=== PATIENT | male | born 1955 | race Caucasian/White ===

== ENCOUNTER 2018-06-02 03:50 | Inpatient (IN) | payer OTHER ==
[2018-06-02] VITALS (7 sets, daily range): BP systolic 104–155; BP diastolic 73–104
[~2018-06-02] VITALS: Ht 172.7 cm; Wt 114.3 kg
--- NOTE | ~2018-06-02 | CATHLAB ---
[facility] [address] [place] [address] INVASIVE PROCEDURE REPORT Name: GARRICK BURR JR Room #: 208-P [facility]#: [id number] Admission: 06/02/18 Attend Phys: Patrick Enamorado, Discharge: 06/04/18 Date of : 53 Date of Service: 06/06/18 1734 Report #: [id number] THIS REPORT FOR: //name// APPROVED REPORT Study performed: 06/02/2018 04:31:30 Patient Details Patient Status: ED Room #: The patient is a 62 year-old male Event Personnel Patrick Enamorado Multi Skilled Operator, Bartolo Ramírez RN RN, Nora Diaz RTR, Mitchell Boland Christine RTR Monitor Procedures Performed Art Access - R femoral artery* Ascending Aortography Hemostasis w/ Mynx Left Heart Cath Coronaries, Bypass Grafts [id number] LHCCORCABG 54813 Initial Mod Sed Same Phys/QHP Gr5y 163711 35377 Mod Sed Same Phys/QHP Ea 001210 JANEL Revasc AMI Total/Sub Single RCA C9606 AMIREVSING Indication Chest pain Procedure Narrative The Right Groin^ was infiltrated with 1% Lidocaine subcutaneous anesthesia. A PINNACLE 6FR Sheath #[id number] sheath was inserted into the RFA^. Coronary angiography was performed using coronary diagnostic catheters. The right coronary system was accessed and visualized with a JR4 catheter. The left coronary system was accessed and visualized with a JL4 catheter. The left ventricle was accessed and visualized with a Pigtail catheter. Left ventriculogram was performed in 30 degree projection. An aortogram of the ascending aorta was performed. Pre-demployment femoral angiogram was performed . Closure device was deployed with a 6 Fr MYNXGRIP 6/7F #[id number]. The patient tolerated the procedure well and there were no complications associated with the procedure. There was no hematoma. Intraoperative Conscious Sedation Sedation start time: 04:54 Case end Time: 05:57 Fentanyl 100 mcg Versed [address] [address] INVASIVE PROCEDURE REPORT Name: GARRICK BURR Room #: 208-P [facility]#: [id number] Admission: 06/02/18 Attend Phys: Patrick Enamorado, Discharge: 06/04/18 Date of : 53 Date of Service: 06/06/18 1734 Report #: [id number] Fluoro Time: 9.22 minutes Dose: DAP 51771.90 cGycm2 2454 mGy Contrast Type and Amount: Visipaque 235 ml Hemodynamics The aortic pressure is 122/84 mmHg with a mean of 102 mmHg. The left ventricular pressure is 137/13 mmHg with a mean of mmHg. The left ventricular end diastolic pressure is 31 mmHg. PCI Technique Lesion Percutaneous coronary intervention was performed on the distal right coronary artery. A LAUNCHER 6FR JR 4 90CM #[id number] Guide Catheter was used to engage the ostium. A Luge Wire .014 x 182CM #[id number] Interventional Guidewire was used to cross the lesion. BALLOON DILATION A Balloon catheter Sprinter OTW 2.5 x 12 #[id number] was inserted and inflated up to 12.00atm for 29seconds. Additional Inflation: 16.00atm for 28seconds. STENT DEPLOYMENT A drug-eluting stent RESOLUTE OTW 3.0 X 12 #[id number] was inserted and inflated up to 18.00atm for 37seconds. Conclusion #1 successful emergent PTCA stent of a distal dominant RCA occlusion placement of a 30 by 12 resolute drug-eluting stent to 3.3 mm at the distal RCA with brisk flow into the PDA and ALIN #2 left main is a distal lesion of 60-70% giving rise to an occluded LAD and moderate disease and a circumflex artery 60% range with a high rising marginal branch also 60% #3 the LAD is occluded #4 circumflex OM is filled via the 70% left main with a 70% ostial first OM and 70% proximal circumflex lesion #5 vein graft to a second OM branch retrograde fills the circumflex briskly some competitively filled through the elem system. This graft is widely patent #6 there is a GALVEZ which has been taken down and is filling the LAD. Moderate disease in the LAD is extensive the apex #7 normal left ventricular size with inferior wall hypokinesis EF 45% to 50% range #8 supravalvular aortogram revealing trivial aortic insufficiency there is faint filling of a aortic grafts Recommendations and plan: Continue aggressive risk factor medication. [facility] [address] [place] [address] INVASIVE PROCEDURE REPORT Name: GARRICK BURR JR Room #: 809-P DIS IN M.R.#: [id number] Admission: 06/02/18 Attend Phys: Patrick Enamorado, Discharge: 06/04/18 Date of : 53 Date of Service: 06/06/18 1734 Report #: [id number] Dual antiplatelet therapy. To CCU in stable condition. Pain-free with resolving EKG changes <ELECTRONICALLY SIGNED> By: Patrick Enamorado MD, FACC 06/06/18 1734 173 33 Patrick Enamorado MD, FACC /INF
--- NOTE | ~2018-06-02 | HC ---
[facility] [place] [address] CONSULTATION Name: AMINAHGARRICK Neel PEREZ Room #: 208-P [facility] IN M.R.#: [id number] Admission: 06/02/18 Attend Phys: Patrick Enamorado MD, Discharge: 06/04/18 Date of : 53 Report #: [id number] THIS REPORT FOR: //name// CC: FAM unknown Patrick Enamorado REASON FOR CONSULTATION: Medical management. REASON FOR PRESENTATION: Neck and chest pain. HISTORY OF PRESENT ILLNESS: A 62-year-old who began to have chest pain 20 minutes before his arrival to the Emergency Room. This was associated with radiation to the jaw area. He reported also sweating with it. He took baby aspirin and Tums with no relief of his symptoms. He tells me that he had a cardiac bypass back in 2011. This was quadruple bypass. He reported to dyspnea on exertion. No orthopnea or PND. His cardiac disease was discovered during a stress test for his knee surgery. He ended up having CABG x 4. He denies unstable angina. He presented to be further evaluated where he was found to have an acute ST elevation [place] and was taken to the laborer electroplating with a stent placed in his RCA. Medical team is being asked to manage his medical related issues. PAST MEDICAL HISTORY: 1. Hypertension. 2. Diabetes mellitus. 3. Hyperlipidemia. 4. Hypothyroidism. 5. Morbid obesity. 6. Vertigo. 7. Status post CABG x 4. 8. Back fusion. 9. Knee surgery. MEDICATIONS: 1. Aspirin. 2. Lisinopril 5 mg daily. 3. Simvastatin 40 mg daily. 4. Levothyroxine 150 mcg q. day. 5. Carvedilol 25 mg daily. 6. Atorvastatin. 7. Gabapentin. 8. Metformin. 9. Tizanidine. 10. Omeprazole. SOCIAL HISTORY: Denies drug or alcohol abuse. He is on disability. FAMILY HISTORY: Very strong family history of coronary artery disease including [facility] [address] [place] [address] CONSULTATION Name: AMINAHGARRICK E Room #: [address] [place] [address].#: [id number] Admission: 06/02/18 Attend Phys: Patrick Enamorado MD, Discharge: 06/04/18 Date of : 53 Report #: [id number] . REVIEW OF SYSTEMS: GENERAL: No fever or chills. CARDIOVASCULAR: As per the history of present illness. PULMONARY: As per the history of present illness. GASTROINTESTINAL: No nausea or vomiting. GENITOURINARY: No frequency, no urgency. NEUROLOGICAL: No headache, no dizziness, no syncope. SKIN: No rash or ulcerations. PHYSICAL EXAMINATION: GENERAL: He is alert, oriented. VITAL SIGNS: Blood pressure is 119/82, temperature 37.2, pulse rate is 84. HEAD AND NECK: No jugular venous distention, no bruit, no thyromegaly. CHEST: Clear to auscultation bilaterally. CARDIOVASCULAR: Regular with no rub detected. ABDOMEN: Soft, nontender with no hepatosplenomegaly. LOWER EXTREMITIES: No edema with intact peripheral pulses. LABORATORY DATA: Reviewed. Initial troponins were negative. Platelet is 137. Chemistry showed a low sodium at 133. Magnesium was low at 1.4. ASSESSMENT, IMPRESSION AND PLAN: 1. Acute ST elevation myocardial infarction. 2. Hypertension. 3. Diabetes mellitus. 4. Hyperlipidemia. 5. Hypothyroidism. 6. The patient was taken to the laborer electroplating and a right coronary artery lesion had been fixed with a stent. 7. Continue the current post-acute coronary intervention protocol including statin, TIN inhibitor, carvedilol, routine anticoagulation. 8. Holding his metformin for now. 9. Resume his thyroid medication. 10. Routine post-catheterization care. 11. Gastrointestinal prophylaxis. 12. Watch blood sugar. 13. Sliding scale insulin. We will continue to follow along. <ELECTRONICALLY SIGNED> By: Angela Barreto MD 06/11/18 0634 0931 1957 Angela Barreto MD /nt
--- NOTE | ~2018-06-02 | 2DMMODE ---
[facility] [address] 2 D/M-MODE ECHOCARDIOGRAM Name: GARRICK BURR Room #: 208-P [facility] IN ..#: [id number] Admission: 06/02/18 Attend Phys: Patrick Enamorado, Discharge: Date of : 53 Date of Service: 06/03/18 0918 Report #: [id number] THIS REPORT FOR: //name// APPROVED REPORT Study performed: 06/02/2018 09:26:25 EXAM: Comprehensive 2D, Doppler, and color-flow Echocardiogram Patient Location: Bedside Room #: 208 Status: on-call BSA: 2.23 HR: 86 bpm BP: 115/80 mmHg Other Information Study Quality: Fair Indications Diabetes Dyspnea CAD Hypertension/HDD STEMI Echo Enhancing Agent Indication: Endocardial border delineation Agent(s) / Amount(s) Used: Optison 3 cc 2D Dimensions LVEF(%): 62.62 (>50%) IVSd: 10.42 (7-11mm) LVOT Diam: 24.19 (18-24mm) LVDd: 55.15 mm PWd: 10.22 (7-11mm) Ascending Ao: 37.20 (22-36mm) LVDs: 36.28 (25-40mm) Aortic Root: 31.73 mm IVC: 18.00 mm Snyder's LVEF: 62.62 % Aortic Valve AoV Peak Tha.: 1.17 m/s AO Peak Gr.: 5.50 mmHg LVOT Max P.03 mmHg LVOT Max V: 0.87 m/s KULDIP Vmax: 3.41 cm2 Mitral Valve [facility] [address] [place] [place] [address] 2 D/M-MODE ECHOCARDIOGRAM Name: GARRICK BURR JR Room #: 208-P [facility] IN [facility].#: [id number] Admission: 06/02/18 Attend Phys: Patrick Enamorado, Discharge: Date of : 53 Date of Service: 06/03/18 0918 Report #: [id number] E/A Ratio: 1.1 MV Decel. Time: 198.55 ms MV E Max Tha.: 0.93 m/s MV A Tha.: 0.86 m/s MV PHT: 57.58 ms IVRT: 96.89 ms Pulmonary Valve PV Peak Tha.: 0.71 m/s PV Peak Gr.: 1.99 mmHg Left Ventricle The left ventricle is normal size. There is normal left ventricular wall thickness. The left ventricular systolic function is normal. The left ventricular ejection fraction is within the normal range. LVEF is 50 55% mild inf wall hypo The left ventricular diastolic function is normal. Right Ventricle The right ventricle is normal size. The right ventricular systolic function is normal. Atria Left atrium is at the upper limits of normal. The right atrium size is normal. Aortic Valve The aortic valve is normal in structure. No aortic regurgitation is present. There is no aortic valvular stenosis. Mitral Valve The mitral valve is normal in structure. Mild mitral regurgitation. No evidence of mitral valve stenosis. Tricuspid Valve The tricuspid valve is normal in structure. There is no tricuspid valve regurgitation noted. Pulmonic Valve The pulmonary valve is normal in structure. There is no pulmonic valvular regurgitation. Great Vessels The aortic root is normal in size. IVC is normal in size and collapses >50% with inspiration. Pericardium [facility] [address] 2 D/M-MODE ECHOCARDIOGRAM Name: GARRICK BURR JR Room #: 208-P ADM IN M.R.#: [id number] Admission: 06/02/18 Attend Phys: Patrick Enamorado, Discharge: Date of : 53 Date of Service: 06/03/18 0918 Report #: [id number] There is no pericardial effusion. <Conclusion> The left ventricle is normal size. LVEF is 55-60%. LVEF is 50 55% mild inf wall hypo Left atrium is at the upper limits of normal. The aortic valve is normal in structure. There is no aortic valvular stenosis. The aortic valve is normal in structure. Mild mitral regurgitation. There is no tricuspid valve regurgitation noted. The aortic root is normal in size. There is no pericardial effusion. <ELECTRONICALLY SIGNED> By: Patrick Enamorado MD, [facility] 06/03/18917 7 7 Patrick Enamorado MD, FAC /INF
--- NOTE | ~2018-06-02 | H ---
[facility] [place] [address] HISTORY AND PHYSICAL Name: GARRICK BURR Room #: 208-P [facility] IN M.R.#: [id number] Admission: 06/02/18 Attend Phys: Patrick Enamorado MD, Discharge: 06/04/18 Date of : 53 Report #: [id number] THIS REPORT FOR: //name// CC: FAM unknown Patrick Enamorado DATE OF SERVICE: 06/02/2018 HISTORY OF PRESENT ILLNESS: The patient is a 62-year-old male who awokened with chest pain this morning. This is consistent with his angina, got up to let the dog out approximately 3:00 a.m. and had an onset of sudden chest pain, shortness of breath and some diaphoresis. Subsequently, he called his sister and brought to [facility]. He had subtle inferior wall ST segment elevation. He felt like pain initially had been some gaseous issue, but he has been having more of that lately, but has not had any of this intense discomfort as he experienced this morning. He has been compliant with his medications. He is applying for disability. He has not seen Cardiology in a year or two. He had bypass surgery dating back to 2011, which he believes was a 4-vessel. I do not have any of the records. CURRENT MEDICATIONS: Aspirin, atorvastatin 40, carvedilol 25 b.i.d., Lasix 40, gabapentin 300, glyburide 5, insulin, Synthroid branded 150 mcg, lorazepam 0.5 at night, metformin 500 b.i.d., Singulair, Aldactone 25, Flomax 0.4, Zanaflex and tramadol 50 three times a day with meals, omeprazole 40. PAST MEDICAL HISTORY: Positive for hypertension, hypercholesterolemia, diabetes, 2 back surgeries, a right knee replacement, coronary artery bypass surgery, no infarct that he was aware of, reflux, DJD. SOCIAL HISTORY: He lives alone. He has never been , no children. Not a smoker. Social drinker. REVIEW OF SYSTEMS: Negative except for stated above with some nocturia and hesitancy. ALLERGIES: VICODIN. FAMILY HISTORY: Mother and sister have had premature coronary artery disease. PHYSICAL EXAMINATION: VITAL SIGNS: Blood pressure 122/84, pulse is 60s and regular. HEENT: Eyes reveal xanthelasmas. Pharynx is clear. NECK: Shows preserved upstrokes without JVD or bruits. LUNGS: Clear, slight expiratory phase. CARDIOVASCULAR: Regular rate and rhythm, S1, S2. ABDOMEN: Obese, nontender. [address] [address] HISTORY AND PHYSICAL Name: GARRICK BURR Room #: [facility] IN M.R.#: [id number] Admission: 06/02/18 Attend Phys: Patrick Enamorado MD, Discharge: 06/04/18 Date of : 53 Report #: [id number] EXTREMITIES: Reveal trace nonpitting edema. Distal pulses are diminished, but intact. NEUROLOGIC: Nonfocal. SKIN: Warm and dry without xanthoma or ulcer. MUSCULOSKELETAL: Generalized arthritic changes, right knee replaced. ASSESSMENT: 1. Acute inferior wall myocardial infarction. 2. Coronary artery disease with prior coronary artery bypass graft 2011. 3. Hypertension. 4. Hypercholesterolemia. 5. Obesity. 6. Degenerative joint disease. 7. Benign prostatic hypertrophy. RECOMMENDATIONS AND PLAN: We will proceed emergently to the catheterization lab. We will utilize aspirin, Lipitor 80 and heparin bolus. Risks, benefits, alternatives discussed with the patient. He does elect to proceed. Thank you for the opportunity to assist in the care of this patient. <ELECTRONICALLY SIGNED> By: Patrick Enamorado MD, FACC 06/11/18 0942 0602 1603 Patrick Enamorado MD, FACC /nt
--- NOTE | ~2018-06-02 | EKG ---
[place] [address] [facility] [place] [address] ELECTROCARDIOGRAM REPORT Name: AMINAHGARRICK Room #: 208-P [facility] M.R.#: [id number] Admission: 06/02/18 Attend Phys: Patrick Enamorado MD, Discharge: Date of : 53 Report #: [id number] THIS REPORT FOR: //name// [facility] Test Date: 2018-06-03 Test Time: 07:40:50 Pat Name: GARRICK BURR Department: Room: 208 P Gender: M Drug And Alcohol Counsellor: ALTON : 1955 Requested By: Patrick Enamorado Order Number: [id number] MD: William Peres Measurements Intervals [place] Rate: 75 P: 55 IN: 194 QRS: 199 QRSD: 108 T: 133 QT: 417 QTc: 466 Interpretive Statements Sinus rhythm Nonspecific T wave abnormality Inferior infarct, old No previous ECG available for comparison Electronically Signed On 06-03-2018 14:10:30 CDT by William Peres [email or web address] <ELECTRONICALLY SIGNED> By: William Peres MD, [facility] 06/03/18 1410 0740 9 William Peres MD, FACC /EPI
--- NOTE | ~2018-06-02 | EKG ---
[place] [address] [facility] [place] [address] ELECTROCARDIOGRAM REPORT Name: GARRICK BURR Room #: 208-P [facility] M.R.#: [id number] Admission: 06/02/18 Attend Phys: Patrick Enamorado MD, Discharge: Date of : 53 Report #: [id number] THIS REPORT FOR: //name// [facility] Test Date: 2018-06-02 Test Time: 07:47:24 Pat Name: GARRICK BURR Department: Room: 208 P Gender: M Clinical Appeals Reviewer: benjamín : 1955 Requested By: Patrick Enamorado Order Number: [id number] MD: William Peres Measurements Intervals [place] Rate: 86 P: 43 IL: 200 QRS: 235 QRSD: 109 T: 77 QT: 394 QTc: 472 Interpretive Statements Sinus rhythm Probable right ventricular hypertrophy Inferior infarct, old Baseline wander in lead(s) V3 No previous ECG available for comparison Electronically Signed On 06-03-2018 14:05:39 CDT by William Peres [email or web address] <ELECTRONICALLY SIGNED> By: William Peres MD, [facility] 06/03/18 1405 0747 William Peres MD, [facility] /EPI
--- NOTE | ~2018-06-02 | EKG ---
[place] [address] [place] [address] ELECTROCARDIOGRAM REPORT Name: GARRICK BURR Room #: 208-P [facility].R.#: [id number] Admission: 06/02/18 Attend Phys: Patrick Enamorado MD, Discharge: Date of : 53 Report #: [id number] THIS REPORT FOR: //name// [facility] ED Test Date: 2018-06-02 Test Time: 03:50:38 Pat Name: GARRICK BURR Department: Room: Gender: M Chief Pilot: YAMILE : 1955 Requested By: Elgin Rios Order Number: [id number] MD: William Peres Measurements Intervals [place] Rate: 89 P: 55 CT: 207 QRS: 122 QRSD: 109 T: 99 QT: 371 QTc: 452 Interpretive Statements Sinus rhythm Inferoposterior infarct, acute (RCA) Poor R wave progression No previous ECG available for comparison Electronically Signed On 06-03-2018 14:03:11 CDT by William Peres [email or web address] <ELECTRONICALLY SIGNED> By: William Peres MD, [facility] 06/03/18 1403 9 William Peres MD, FACC /EPI
[~2018-06-02 03:50] MED LIST: ACETAMINOPHEN650 M5 OR; ASPIRIN325 OR; DIABETA 5MG TABL5 MG PO; LEVAQUIN 500 M500 M2 PO; LISINOPRIL5 MG OR; MECLIZINE HCL25 M1 PO; SIMVASTATIN40 MG PO; SYNTHROID150 MCG PO; TUSSIONEX PENN473 ML PO
[2018-06-02] MEDS ORDERED: ATORVASTATIN CA40 MG PO (04:19)
[2018-06-02] MEDS ORDERED: NEURONTIN 300300 M1 PO (04:20)
[2018-06-02] MEDS ORDERED: COREG25 MG PO (04:20)
[2018-06-02] MEDS ORDERED: GLYBURIDE 2.52.5 MG PO (04:21)
[2018-06-02] MEDS ORDERED: ATIVAN0.5 MG PO (04:23)
[2018-06-02] MEDS ORDERED: ZANAFLEX4 MG PO (04:24)
[2018-06-02] MEDS ORDERED: FLOMAX0.4 MG PO (04:24)
[2018-06-02] MEDS ORDERED: METFORMIN HCL500 MG PO (04:24)
[2018-06-02] MEDS ORDERED: ULTRAM 50MG TAB50 MG PO (04:25)
[2018-06-02] MEDS ORDERED: OMEPRAZOLE40 MG PO (04:26)
[2018-06-02 04:29] LABS: ABSOLUTE NEUTROPHILS 4.3 thou/uL (1.4-8.2); BASOPHILS 0.7 % (0.0-2.0); EOSINOPHILS 1.5 % (0.0-3.0); HEMATOCRIT 50.5 % (42.0-52.0); HEMOGLOBIN 16.8 gm/dL (14.0-18.0); LYMPHOCYTES 22.3 % (24.0-44.0); MCH 29.2 pg (26.0-34.0); MCHC 33.2 g/dL (28.0-37.0); MCV 87.8 fL (80.0-100.0); MONOCYTES 9.5 % (1.0-8.0); PLATELET COUNT 137 thou/uL (150-400); RBC 5.75 mil/uL (4.50-6.00); RDW 15.2 % (10.5-14.5); WBC 6.4 thou/uL (4.0-11.0)
[2018-06-02 04:40] LABS: ANION GAP 4 mmol/L (7-16); BUN 14 mg/dL (7-18); CALCIUM 8.9 mg/dL (8.5-10.1); CHLORIDE 100 mmol/L (98-107); CO2 29 mmol/L (21-32); CREATININE 0.8 mg/dL (0.7-1.3); GLUCOSE 369 mg/dL (74-106); POTASSIUM 4.3 mmol/L (3.5-5.1); SODIUM 133 mmol/L (136-145)
[2018-06-02 04:45] LABS: APTT 19.9 Seconds (24.5-32.8); PROTIME 10.6 Seconds (9.3-11.4)
[2018-06-02 04:49] LABS: ALBUMIN 3.1 g/dL (3.4-5.0); MAGNESIUM 1.4 mg/dL (1.8-2.4); SGOT 22 U/L (15-37); SGPT 34 U/L (30-65); TOTAL BILIRUBIN 0.5 mg/dL (<0.1-1.0); TOTAL PROTEIN 6.4 g/dL (6.4-8.2); TROPONIN-I <0.06 ng/mL (<0.06)
[2018-06-02 13:38] LABS: AMP/METHAMP Negative (Negative); BARBITURATES Negative (Negative); BENZODIAZEPINES POSITIVE (Negative); COCAINE Negative (Negative); METHADONE Negative (Negative); OPIATES POSITIVE (Negative); PCP Negative (Negative)
[2018-06-03 03:20] VITALS: BP 101/68
[2018-06-03 03:32] LABS: ABSOLUTE NEUTROPHILS 6.2 thou/uL (1.4-8.2); BASOPHILS 0.5 % (0.0-2.0); EOSINOPHILS 1.7 % (0.0-3.0); HEMATOCRIT 48.4 % (42.0-52.0); HEMOGLOBIN 16.1 gm/dL (14.0-18.0); LYMPHOCYTES 15.9 % (24.0-44.0); MCH 28.8 pg (26.0-34.0); MCHC 33.3 g/dL (28.0-37.0); MCV 86.6 fL (80.0-100.0); MONOCYTES 8.9 % (1.0-8.0); PLATELET COUNT 133 thou/uL (150-400); RBC 5.59 mil/uL (4.50-6.00); RDW 14.8 % (10.5-14.5); WBC 8.5 thou/uL (4.0-11.0)
[2018-06-03 03:42] LABS: CHOLESTEROL 138 mg/dL (<200); HDL CHOLESTEROL 31 mg/dL (>40); LDL CHOLESTEROL 77 mg/dL (<100); TC:HDL 4.5 Ratio (Not establshd); TRIGLYCERIDE 154 mg/dL (<150); VLDL 31 mg/dL (<40)
[2018-06-03 03:46] LABS: SERUM ASSESSMENT Clear
[2018-06-03 03:53] LABS: ALBUMIN 2.9 g/dL (3.4-5.0); CALCIUM 8.8 mg/dL (8.5-10.1); CREATININE 0.9 mg/dL (0.7-1.3); POTASSIUM 4.2 mmol/L (3.5-5.1); TOTAL BILIRUBIN 0.9 mg/dL (<0.1-1.0); TOTAL PROTEIN 6.2 g/dL (6.4-8.2)
[2018-06-03 03:58] LABS: TROPONIN-I 25.7 ng/mL (<0.06)
[2018-06-03 08:26] VITALS: BP 106/65
[2018-06-03 11:32] VITALS: BP 112/68
[2018-06-03 16:40] VITALS: BP 99/58
[2018-06-03 19:57] VITALS: BP 136/86
[2018-06-04 04:27] VITALS: BP 124/72
[2018-06-04] MEDS ORDERED: EFFIENT10 MG PO (07:55)
[2018-06-04] MEDS ORDERED: ASPIRIN325 PO (07:55)
[2018-06-04 07:56] VITALS: BP 119/81
[2018-06-04] MEDS ORDERED: JARDIANCE10 MG PO (08:19)
[2018-06-04 10:43] VITALS: BP 119/81
== END 2018-06-04 11:30 | disposition home or self-care (01) | DRG 246 ==
LOC: ER 03:50 → 2N 06:15 → ENTRNSPT 06-04 11:12 → EDTRNSPTSTS 06-04 11:24 → 2N 06-04 11:30
PROVIDERS: Emergency Medicine; Internal Medicine Cardiovascular Disease; Nurse Practitioner Adult Health
PROC: 4A023N7 Measurement of Cardiac Sampling and Pressure, Left Heart, Percutaneous Approach (ICD-10-PCS; principal; 2018-06-02)
PROC: 027034Z Dilation of Coronary Artery, One Artery with Drug-eluting Intraluminal Device, Percutaneous Approach (ICD-10-PCS; principal; 2018-06-02)
PROC: B211YZZ Fluoroscopy of Multiple Coronary Arteries using Other Contrast (ICD-10-PCS; principal; 2018-06-02)
PROC: B310YZZ Fluoroscopy of Thoracic Aorta using Other Contrast (ICD-10-PCS; principal; 2018-06-02)
PROC: B21FYZZ Fluoroscopy of Other Bypass Graft using Other Contrast (ICD-10-PCS; principal; 2018-06-02)
DX: I21.19 ST elevation (STEMI) myocardial infarction involving other coronary artery of inferior wall (principal); J96.00 Acute respiratory failure, unspecified whether with hypoxia or hypercapnia; I10 Essential (primary) hypertension; E11.9 Type 2 diabetes mellitus without complications; E78.5 Hyperlipidemia, unspecified; E03.9 Hypothyroidism, unspecified; E66.01 Morbid (severe) obesity due to excess calories; E78.00 Pure hypercholesterolemia, unspecified; Z96.651 Presence of right artificial knee joint; Z60.2 Problems related to living alone; N40.0 Benign prostatic hyperplasia without lower urinary tract symptoms; M19.90 Unspecified osteoarthritis, unspecified site; I25.10 Atherosclerotic heart disease of native coronary artery without angina pectoris; E11.40 Type 2 diabetes mellitus with diabetic neuropathy, unspecified; K21.9 Gastro-esophageal reflux disease without esophagitis; G89.4 Chronic pain syndrome; Z79.82 Long term (current) use of aspirin; Z79.899 Other long term (current) drug therapy; Z68.38 Body mass index [BMI] 38.0-38.9, adult; Z95.1 Presence of aortocoronary bypass graft; Z82.49 Family history of ischemic heart disease and other diseases of the circulatory system; Z88.8 Allergy status to other drugs, medicaments and biological substances; Z89.021 Acquired absence of right finger(s)
CPT/HCPCS: 10081

== ENCOUNTER → 2019-11-07 | Outpatient (CLI) | payer OTHER ==
[~2019-11-07] VITALS: Ht 170.2 cm; Wt 108.9 kg
[~2019-11-07] MED LIST changes: +ASPIR 8181 M1 PO; +ASPIRIN325 PO; +ATIVAN0.5 MG PO; +ATORVASTATIN CA40 MG PO; +COREG25 MG PO; +EFFIENT10 MG PO; +FLOMAX0.4 MG PO; +GLIPIZIDE 10 MG10 MG PO; +GLYBURIDE 2.52.5 MG PO; +JARDIANCE10 MG PO; +METFORMIN HCL500 MG PO; +NEURONTIN 300300 M1 PO; +NITROSTAT0.4 M1 SUBLING; +OMEPRAZOLE40 MG PO; +ROSUVASTATIN CA20 MG PO; +SPIRONOLACTONE25 M1 PO; +ULTRAM 50MG TAB50 MG PO; +ZANAFLEX4 MG PO; +ZETIA10 MG PO
--- NOTE | ~2019-11-07 | HPC ---
[facility] [place] [address] PAIN MANAGEMENT CONSULTATION Name: GARRICK BURR Room #: REG [facility].#: [id number] Admission: 11/07/19 Attend Phys: Jose Alfredo Alcaraz MD Discharge: Date of : 53 Report #: [id number] THIS REPORT FOR: //name// CC: Jose Alfredo Goldstein MD DATE OF SERVICE: 11/07/2019 CHIEF COMPLAINT: Lumbar pain without radiation. The patient is a pleasant 63-year-old here today for evaluation of back pain. He has some mid back pain that is severe with standing and walking. It is improved with sitting or lying on his right side. He describes his pain as aching, continuous and steady, and pain intensity is anywhere from 6 to 8. It never goes away. He has a history of prior lumbar surgery with fusion. Dr. Pandey performed the surgery. He had repeat surgery and Dr. Pandey left in place L3 pedicle screws that were ____ up to the current system extending from L4 through S1. They appear not to be causing issue. His pain, however, is located in the midline just above his fusion and would be consistent with facet arthropathy related to hypermobility, common, following fusion surgery of an extensive nature. He does not appear to have any neuropathic symptoms at this time. MEDICATIONS: Atorvastatin, carvedilol, ____, aspirin, nitroglycerin, Zetia, Glucotrol, Aldactone, tramadol prescribed by Dr. Goldstein no more than 3 per day, tizanidine p.r.n. muscle spasm, tamsulosin, lorazepam, gabapentin, acetaminophen and levothyroxine. ALLERGIES: None. PAST MEDICAL HISTORY: Hyperlipidemia, hypertension, chronic back pain, type 2 diabetes, hypothyroidism, coronary artery disease, status post CABG times 3 in 2011, right knee replacement in 2011. His lumbar surgeries were in 2013 and 2016. SOCIAL HISTORY: He is on disability. He denies use of tobacco, drinks alcohol 2-4 times weekly in a social setting. He is single. REVIEW OF SYSTEMS: Positive for hearing loss, constipation, frequent urination, nocturia, and a history of depression. PHYSICAL EXAMINATION: GENERAL: Pleasant gentleman, alert and oriented. Moves independently from sitting to standing position, ambulates with antalgic features. [address] [address] PAIN MANAGEMENT CONSULTATION Name: AMINAHGARRICK Neel Room #: [facility]#: [id number] Admission: 11/07/19 Attend Phys: Jose Alfredo Alcaraz MD Discharge: Date of : 53 Report #: [id number] CHEST: Clear. CARDIAC: Rhythm is regular. There is a murmur noted. ABDOMEN: Soft. MUSCULOSKELETAL: Examination of the spine reveals extensive scarring from previous lumbar surgery. Tenderness across the lumbosacral segment, both along the scar and also above the scar. There was increased pain with back extension. Straight leg raising is negative for radicular pain. IMPRESSION: Lumbar spondylosis. RECOMMENDATIONS: 1. I have ordered thoracic and lumbar plain film x-rays to evaluate the facet joints and also to assess alignment. 2. Consider ongoing exercise as an important modality. 3. Injections would be diagnostic and therapeutic. I have recommended bilateral T12-L1, L1-L2, L3-L4 facet injections under fluoroscopic guidance. Preauthorization will be sought. If he gets good response from these injections, we will consider medial branch nerve blocks. He might be a candidate down the line for facet ablation. Alternative treatment might be a single epidural injection to determine if he can get relief from such a single injection modality. We will determine more after we see him back in the clinic, but for now, I have scheduled him for facet injections hoping for benefits outlined above. By: 1730 0052 Jose Alfredo Alcaraz MD /nt
[2019-11-07 09:40] VITALS: BP 118/75
--- NOTE | 2019-11-07 10:09 | NUR ---
Pain Clinic Assessment: 1. History of Osteoarthritis: Left Lower Extremity Left Upper Extremity Right Lower Extremity Right Upper Extremity * BACK History of Rheumatoid Arthritis: Not Applicable 2. Height: 5 ft. 7 in. 170.2 cm. Weight: 240.0 lb. oz. 108.864 kg. Patient's BMI: 37.6 3. Vital Signs: BP: 118/75 Pulse: 76 Resp: 16 Temp: 02 Sat: 95 ECG Mon: 4. Pain Intensity: 7 5. Fall Risk: Dizziness: N Needs help standing or walking: N Fallen in the last 3 months: N Fall risk comments: 6. Patient on Blood Thinner: None 7. History of Hypertension: Y 8. Opioid Therapy greater than 6 weeks: N Opiate Contract Signed: 9. Risk Assessment Tool Provided: 10. Functional Assessment Tool: 11. Recreational Drug Use: Never Drug Type: Tobacco Use: Never Smoker Tobacco Type: Amount or Packs/day: How Many Years: Alcohol Use: Yes Frequency: Weekly Quant: 3-4
== END ==
LOC: RAD 06:47 → PAIN 06:47
DX: M47.816 Spondylosis without myelopathy or radiculopathy, lumbar region (principal); M48.061 Spinal stenosis, lumbar region without neurogenic claudication; M25.78 Osteophyte, vertebrae; M47.814 Spondylosis without myelopathy or radiculopathy, thoracic region; Z79.899 Other long term (current) drug therapy; Z98.890 Other specified postprocedural states; Z88.8 Allergy status to other drugs, medicaments and biological substances

== ENCOUNTER → 2019-11-25 | Outpatient (CLI) | payer OTHER ==
[~2019-11-25] VITALS: Ht 170.2 cm; Wt 108.4 kg
[~2019-11-25] MED LIST changes: +MELOXICAM7.5 MG PO
--- NOTE | ~2019-11-25 | HPC ---
[address] [place] [address] PAIN MANAGEMENT CONSULTATION Name: GARRICK BURR [facility] [id number] Admission: 11/25/19 Attend Phys: Jose Alfredo Alcaraz MD Discharge: Date of : 53 Report #: [id number] THIS REPORT FOR: //name// CC: Jose Alfredo Goldstein MD DATE OF SERVICE: 11/25/2019 PROCEDURE NOTE: Bilateral T12-L1, L1-L2, L2-L3 facet injections under fluoroscopic guidance. INDICATION FOR PROCEDURE: The patient was seen on 11/07/2019. He was felt to have facet mediated spondylitic pain above his fusion. We have elected to proceed with facet injections in the three joints above bilaterally with hopes of providing both pain relief and perhaps diagnostic information. PROCEDURE: After informed consent, he was placed in the prone position. Skin was prepped with ChloraPrep. Skin was anesthetized first on the left. Using biplanar fluoroscopic views, I carefully advanced 22-gauge needles into the posterior inferior capsule and inferior recess of the joints of T12-L1, L1-L2 and L2-L3. After negative aspiration at each level, I injected 1 mL of 0.5% bupivacaine mixed with 10 mg of triamcinolone. [place] were removed. C-arm was moved to the right. Skin anesthetized once again overlying the facet joints described T12-L1, L1-L2 and L2-L3. Needle was advanced into each joint and after negative aspiration, I injected 0.5 mL of 0.5% lidocaine mixed with 10 mg of triamcinolone at each of those levels. He tolerated the injection well. Pain was slightly reduced at discharge and plan is for him to return on an as needed basis. Hopefully, we will see some extended relief from these injections. By: 1652 0024 Jose Alfredo Alcaraz MD /nt
[2019-11-25 14:02] VITALS: BP 129/93
--- NOTE | 2019-11-25 14:23 | NUR ---
Pain Clinic Assessment: 1. History of Osteoarthritis: Left Lower Extremity Left Upper Extremity Right Lower Extremity Right Upper Extremity * BACK History of Rheumatoid Arthritis: Not Applicable 2. Height: 5 ft. 7 in. 170.2 cm. Weight: 239.0 lb. oz. 108.410 kg. Patient's BMI: 37.4 3. Vital Signs: BP: 129/93 Pulse: 75 Resp: 16 Temp: 02 Sat: 95 ECG Mon: 4. Pain Intensity: 7 5. Fall Risk: Dizziness: N Needs help standing or walking: N Fallen in the last 3 months: N Fall risk comments: 6. Patient on Blood Thinner: None 7. History of Hypertension: Y 8. Opioid Therapy greater than 6 weeks: N Opiate Contract Signed: 9. Risk Assessment Tool Provided: 1-LOW RISK 10. Functional Assessment Tool: 11. Recreational Drug Use: Never Drug Type: Tobacco Use: Never Smoker Tobacco Type: Amount or Packs/day: How Many Years: Alcohol Use: Yes Frequency: Special Occasions Quant:
== END | disposition home or self-care (01) ==
LOC: PAIN 06:32
DX: M47.816 Spondylosis without myelopathy or radiculopathy, lumbar region (principal); I21.3 ST elevation (STEMI) myocardial infarction of unspecified site; Z79.82 Long term (current) use of aspirin; Z79.899 Other long term (current) drug therapy

== ENCOUNTER → 2020-01-06 | Outpatient (CLI) | payer OTHER | LOC: SJCVC 14:21 | DX: I45.10 Unspecified right bundle-branch block (principal); I11.9 Hypertensive heart disease without heart failure; R94.31 Abnormal electrocardiogram [ECG] [EKG]; I25.10 Atherosclerotic heart disease of native coronary artery without angina pectoris; I25.5 Ischemic cardiomyopathy; E11.9 Type 2 diabetes mellitus without complications; G47.30 Sleep apnea, unspecified; E78.00 Pure hypercholesterolemia, unspecified; E66.9 Obesity, unspecified; I25.2 Old myocardial infarction; Z95.1 Presence of aortocoronary bypass graft; Z79.4 Long term (current) use of insulin; Z96.651 Presence of right artificial knee joint; Z79.899 Other long term (current) drug therapy; Z87.891 Personal history of nicotine dependence ==

== ENCOUNTER 2020-05-10 16:29 | Inpatient (IN) | payer OTHER ==
[~2020-05-10] VITALS: Ht 170.2 cm; Wt 108.4 kg
[2020-05-10 16:33] VITALS: BP 147/96
[2020-05-10 16:51] LABS: ABSOLUTE NEUTROPHILS 3.6 thou/uL (1.4-8.2); EOSINOPHILS 3.5 % (0.0-3.0); HEMATOCRIT 53.6 % (42.0-52.0); LYMPHOCYTES 25.3 % (24.0-44.0); MCH 29.5 pg (26.0-34.0); MCHC 33.6 g/dL (28.0-37.0); MCV 87.9 fL (80.0-100.0); MONOCYTES 10.8 % (1.0-8.0); PLATELET COUNT 144 thou/uL (150-400); POLYS 59.4 % (36.0-66.0); RDW 14.8 % (10.5-14.5); WBC 6.1 thou/uL (4.0-11.0)
[2020-05-10 17:01] LABS: ANION GAP 3 mmol/L (7-16); BUN 18 mg/dL (7-18); CALCIUM 9.7 mg/dL (8.5-10.1); CHLORIDE 99 mmol/L (98-107); CO2 30 mmol/L (21-32); GLUCOSE 147 mg/dL (74-106); POTASSIUM 5.5 mmol/L (3.5-5.1); SODIUM 132 mmol/L (136-145)
[2020-05-10] MEDS ORDERED: BUPROPION XL300 MG PO (17:05)
[2020-05-10 17:10] LABS: TROPONIN-I <0.06 ng/mL (<0.06)
[2020-05-10 17:51] LABS: ALBUMIN 3.3 g/dL (3.4-5.0)
[2020-05-10 18:00] LABS: TSH 0.208 uIU/mL (0.358-3.740)
[2020-05-10 18:03] VITALS: BP 123/84
[2020-05-10 18:41] VITALS: BP 114/86
--- NOTE | 2020-05-10 19:20 | NUR ---
PT IS AN ADMIT FROM EMERGENCY ROOM. REPORT TAKEN ASSUME CARE. PT REPORTS HE HAD CHEST PAIN TODAY AND LEFT SHOULDER PAIN. STABING. DENIES ANY CHEST PAIN UPON ARIVAL TO UNIT. NEGATIVE TROPONIN. ABDOMEN IS ROUND BOWEL SOUNDS ACTIVE X4. SOFT. NO EDEMA NOTED BILATERAL. MEDS GIVEN AFTER ADMISSION HISTORY AND ASSESSMENT COMPLETED. WILL CONTUNUE TO ASSESS AND MONITOR PER SYLVIA. PLAN OF CARE DISSCUSED WITH PT IN REGARDS TO ADMISSION AND HOSPITAL STAY. CALL LIGHT WITHIN REACH IF NEEDS ASSISTANCE
[2020-05-10 23:18] VITALS: BP 132/79
[2020-05-11] VITALS (17 sets, daily range): BP systolic 114–133; BP diastolic 65–97
[2020-05-11 04:49] LABS: HEMATOCRIT 52.7 % (42.0-52.0); HEMOGLOBIN 17.3 gm/dL (14.0-18.0); MCHC 32.8 g/dL (28.0-37.0); MCV 88.2 fL (80.0-100.0); RBC 5.98 mil/uL (4.50-6.00); RDW 14.9 % (10.5-14.5); WBC 5.8 thou/uL (4.0-11.0)
[2020-05-11 05:04] LABS: CALCIUM 8.5 mg/dL (8.5-10.1); CREATININE 0.8 mg/dL (0.7-1.3); MAGNESIUM 1.7 mg/dL (1.8-2.4)
[2020-05-11 05:05] LABS: POTASSIUM 4.1 mmol/L (3.5-5.1)
--- NOTE | 2020-05-11 05:08 | NUR ---
PT IS ALERT AND ORIENTED X4. LUNGS ARE CLEAR ON ROOM AIR. ABDOMEN IS ROUND AND BOWEL SOUNDS ACTIVE X4. DENIES ANY CHEST PAIN THIS AM. TROPONIN NEGATIVE. UP WITH MINIMAL ASSIST. PT RESTING REPORTS HARD TO SLEEP IN HOSPITAL. CALL LIGHT WITHIN REACH IF NEEDS ASSISTANCE FROM STAFF. MEDS GIVEN ORDERED ON JAN. WILL CONTINUE TO MONITORING AND VITALS AND CHEST PAIN PER NURSING.
[2020-05-11 05:09] LABS: CHOLESTEROL 116 mg/dL (<200); HDL CHOLESTEROL 26 mg/dL (>40); LDL CHOLESTEROL 39 mg/dL (<100); TC:HDL 4.5 Ratio (Not establshd); TRIGLYCERIDE 256 mg/dL (<150); VLDL 51 mg/dL (<40)
[2020-05-11 05:11] LABS: SERUM ASSESSMENT Clear
--- NOTE | 2020-05-11 07:44 | EKG ---
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 : 1955 Requested By: Deandre Ruggiero Order Number: [id number] MD: William Peres Measurements Intervals [place] Rate: 83 P: 45 ID: 203 QRS: -87 QRSD: 129 T: 96 QT: 418 QTc: 492 Interpretive Statements Sinus rhythm Right ventricular conduction delay Inferior infarct, old Compared to ECG 06/03/2018 07:40:50 No significant change was found Electronically Signed On 05-11-2020 7:43:43 CDT by William Peres [email or web address] <ELECTRONICALLY SIGNED> By: William Peres MD, [facility] 05/11/20 0743 1635 1635 William Peres MD, [facility] /EPI
--- NOTE | 2020-05-11 18:14 | NUR ---
ASSESSMENT CHARTED. PT ALERT AND ORIENTED. VSS. DENIED HAVING CHEST PAIN. SR ON TELE. HAD CARDIAC CATH THIS AM. HAD HEMATOMA ON THE RIGHT GROIN. MANUAL PRESSURE APPLIED. DR. TUTTLE NOTIFIED. WILL CONTINUE TO MONITOR.
[2020-05-12] VITALS: BP 128/65
[2020-05-12 04:00] VITALS: BP 128/81
[2020-05-12 05:00] VITALS: BP 126/81
[2020-05-12 05:43] LABS: HEMATOCRIT 51.9 % (42.0-52.0); HEMOGLOBIN 17.1 gm/dL (14.0-18.0); MCH 29.2 pg (26.0-34.0); MCV 88.5 fL (80.0-100.0); RBC 5.87 mil/uL (4.50-6.00); RDW 14.8 % (10.5-14.5); WBC 7.1 thou/uL (4.0-11.0)
--- NOTE | 2020-05-12 05:47 | NUR ---
ASSUMED PT CARE AT 1900, PT IS AWAKE, ALERT AND ORIENTEDX4, ASSESSMENTS CHARTED, DENIES CHEST PAIN OR SOB, RIGHT GROIN SITE CDI, NO HEMATOMA, BRUISING NOTED ON THE SITE, PAIN MEDICATION GIVEN PRN WITH PARTIAL RELIEF, VSS, LAYING IN BED, NO DISTRESS NOTED, WILL CONTINUE TO MONITOR
[2020-05-12 05:58] LABS: ALBUMIN 3.1 g/dL (3.4-5.0); CALCIUM 8.5 mg/dL (8.5-10.1); POTASSIUM 4.2 mmol/L (3.5-5.1); TOTAL PROTEIN 5.9 g/dL (6.4-8.2)
[2020-05-12 08:00] VITALS: BP 131/75
[2020-05-12] MEDS ORDERED: EFFIENT10 MG PO (08:38)
--- NOTE | 2020-05-12 08:44 | EKG ---
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 : 1955 Requested By: Hector Richardson Order Number: [id number] MD: William Peres Measurements Intervals [place] Rate: 97 P: 16 DC: 210 QRS: -88 QRSD: 123 T: 101 QT: 368 QTc: 468 Interpretive Statements Sinus rhythm Borderline prolonged DC interval Right ventricular conduction delay Inferior infarct, age indeterminate Compared to ECG 05/10/2020 16:35:13 No significant change was found Electronically Signed On 05-12-2020 8:43:01 CDT by William Peres [email or web address] <ELECTRONICALLY SIGNED> By: William Peres MD, [facility] 05/12/20 0843 1609 1609 William Peres MD, [facility] /EPI
--- NOTE | 2020-05-12 08:48 | EKG ---
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 : 1955 Requested By: Hector Richardson Order Number: [id number] MD: William Peres Measurements Intervals [place] Rate: 99 P: 47 TN: 204 QRS: -91 QRSD: 118 T: 91 QT: 346 QTc: 444 Interpretive Statements Sinus rhythm IRBBB and LPFB Inferior infarct, old Nonspecific ST segment abnormality Compared to ECG 05/10/2020 16:35:13 No significant change was found Electronically Signed On 05-12-2020 8:48:01 CDT by William Peres [email or web address] <ELECTRONICALLY SIGNED> By: William Peres MD, [facility] 05/12/20 0848 1 1 William Peres MD, [facility] /EPI
--- NOTE | 2020-05-12 09:06 | CATHLAB ---
[facility] [place] [address] INVASIVE PROCEDURE REPORT Name: GARRICK BURR Room #: 213-P ADM IN M.R.#: [id number] Admission: 05/10/20 Attend Phys: Juan Wilson MD Discharge: Date of : 53 Report #: [id number] THIS REPORT FOR: cc: Marbin Goldstein Steven F. DO Park, Jin S. MD ~ APPROVED REPORT Study performed: 05/11/2020 12:52:58 Patient Details Patient Status: In-Patient Room #: The patient is a 64 year-old male Event Personnel Hector Richardson Varnish Maker, Nora Diaz RTR, [employer] Monitor, Michelle Gonzalez RN, Jonatan Pierre RN RN, Larisa Singh RTR [place] Mi Roberta Monitor Procedures Performed Art Access - R femoral artery* Left Heart Cath w/or w/o Coronaries [id number] [facility] JANEL Place w/wo Plasty Single DIAG [id number] JANEL Place w/wo Plasty Single RAMUS Inter [id number] 82147 Initial Mod Sed Same Phys/QHP Gr5y 851864 71627 Mod Sed Same Phys/QHP Ea 510492 Hemostasis w/ Mynx Indication Dyspnea, Unstable angina , Chest pain Risk Factors Hypercholesterolemia, Coronary Artery DiseaseHypertension, Diabetes Previous Procedures/Diagnoses Previous CABGPrevious PCI, Previous AR Procedure Narrative The Right Groin^ was infiltrated with 1% Lidocaine subcutaneous anesthesia. A PINNACLE 6FR Sheath #[id number] sheath was inserted into the RFA 4F^. Coronary angiography was performed using coronary diagnostic catheters. The right coronary system was accessed and visualized with a JR4 catheter. The left coronary system was accessed and visualized with a JL4 catheter. There was no hematoma. The following grafts were present and open: svg to OM, svg to Diag., and SVG to RV. [address] [address] INVASIVE PROCEDURE REPORT Name: GARRICK BURR Room #: 213-P [facility] IN [facility]#: [id number] Admission: 05/10/20 Attend Phys: Juan Wilson, Discharge: Date of : 53 Report #: [id number] Intraoperative Conscious Sedation Fentanyl mcg Versed mg Fluoro Time: 28.51 minutes Dose: DAP 60012.90 cGycm2 Contrast Type and Amount: Omnipaque 135 ml Coronary Angiography The patient's coronary anatomy is right dominant. Diagnostic Cath Left Main There is mild disease in the distal segment of the left main artery, 30%. LAD There is a total occlusion in the proximal segment. There is a patent free GALVEZ graft with an end-to-side anastomosis to the mid LAD. The LAD wraps around the apex. Diagonal 1 There is a small caliber vessel with a severe stenosis in the midsegment, medical therapy is recommended. Diagonal 2 There is a patent vessel with a severe stenosis at the ostium. OM1 There is a patent SVG with an end-to-side anastomosis to OM1. After the anastomosis, there is retrograde filling of the mid and distal left circumflex artery. Right Coronary The RCA is a dominant vessel. There is a patent stent at the distal segment just before the bifurcation. Just before the stent, there is a moderate stenosis of 40%. R PDA This is a patent vessel, with mild disease. RPLV This is a patent vessel, with mild disease. Left Ventriculography Left Ventriculography was not performed. An LVEDP was measured and there is no gradient across the outflow tract. IVUS A Guide Catheter was used to engage the VISTA 6FR JL5 #[id number] ostium. A [employer] Interventional Guidewire was used. A Luge Wire .014 x 182CM #[id number] was used. IVUS Findings Euphora RX 2.0 x 6 #[id number] Hemodynamics The aortic pressure is 138/76 mmHg with a mean of 107 mmHg. The left ventricular pressure is 138/8 mmHg with a mean of mmHg. The left ventricular end diastolic pressure is 22 mmHg. [facility] [address] [place] [address] INVASIVE PROCEDURE REPORT Name: GARRICK BURR Room #: 213-P [facility] IN M.R.#: [id number] Admission: 05/10/20 Attend Phys: Juan Wilson, Discharge: Date of : 53 Report #: [id number] PCI Technique Lesion Percutaneous coronary intervention was performed on the second diagnonal branch segment. The lesion stenosis prior to intervention was 90% with FARIDA 3 flow. A VISTA 6FR JL5 #624344 Guide Catheter was used to engage the LCA ostium. A Luge Wire .014 x 182CM #[id number] Interventional Guidewire was used to cross the lesion. BALLOON DILATION A Balloon catheter Euphora RX 2.0 x 10 #[id number] was inserted and inflated up to 14atm for 27seconds. Additional Inflation: 12atm for 12seconds. The lesion extended from the proximal LAD into the ostium of the second diagonal artery. STENT DEPLOYMENT A stent RESOLUTE BOBBY RX 2.25 X 8 #[id number] was inserted and inflated up to 16.00atm for 33seconds. Additional Inflation: 12.00atm for 19seconds. Additional Inflation: 12.00atm for 14seconds. POST STENT DEPLOYMENT BALLOON DILATION A Balloon catheter Euphora NC RX 2.25 x 12 #[id number] was inserted and inflated up to 14atm for 23seconds. NC Euphora 2.5oac2xy balloon. 12 marvin for 19 secs., 12 marvin for 14 secs. Final angiography reveals 0 % stenosis with FARIDA 3 flow. PCI Technique Lesion A VISTA 6FR JL5 #670851 Guide Catheter was used to engage the ramus ostium. A Luge Wire .014 x 182CM #[id number] Interventional Guidewire was used to cross the lesion. BALLOON DILATION A Balloon catheter Euphora RX 2.0 x 6 #[id number] was inserted and inflated up to 6atm for 10seconds. Additional Inflation: 10atm for 7seconds. Additional Inflation: 10atm for 9seconds. STENT DEPLOYMENT A stent XIENCE MEL RX 2.25 X 12 #[id number] was inserted and inflated up to 14atm for 17seconds. PCI Technique Lesion 2 Percutaneous Coronary Intervention was performed on the ramus intermedius segment. The lesion stenosis prior to intervention was 90% with FARIDA 3 flow. Balloon Dilation [facility] [address] [facility] [place] [address] INVASIVE PROCEDURE REPORT Name: GARRICK BURR Room #: 213-P [facility] IN .R.#: [id number] Admission: 05/10/20 Attend Phys: Juan Wilson, Discharge: Date of : 53 Report #: [id number] A Balloon catheter Euphora RX 2.0 x 10 #[id number] was inserted and inflated up to 8atm for 14seconds. Stent Deployment A drug-eluting stent XIENCE MEL RX 2.25 X 12 #[id number] was inserted and inflated up to 16atm for 15seconds. Final angiography reveals 0 % stenosis with FARIDA 3 flow. Conclusion 1. Successful insertion of a drug-eluting stent into the second diagonal artery. 2. Successful insertion of a drug-eluting stent into the ramus artery. 3. There is a patent free GALVEZ graft to the mid LAD. 4. There is a patent SVG to OM1. After the anastomosis, there is retrograde filling of the mid and distal left circumflex artery. 5. There is a patent stent in the [place] RCA. There is a modest stenosis just before the stent. 6. There is a patent SVG to RV marginal. 7. Recommend dual antiplatelet therapy and aggressive risk factor management. <ELECTRONICALLY SIGNED> By: Hector Richardson MD 05/12/20904 4 0905 Hector Richardson MD /KATINA
--- NOTE | 2020-05-12 11:53 | NUR ---
08:00 ASSUMED PT. CARE AT THIS TIME. PT. HAD ALOT OF QUESTIONS ABOUT ANY MEDICATION CHANGES AND WE REVIEWED HIS MEDICINE SHEET WELL AT BEDSIDE. PT. DENIES ANY SOB. SINUS RYTHYM WITH BBB AN OCCASIONAL AV BLOCK. STRIP PLACEDON CHART. GROIN SITE DRESSING REMAINS C,D,I . THE GROIN INSERTION SITE AREA DOES SHOW SOME BRUISNG DOWN TO HE BASE AREA OF HIS PENIS, BLACK AND BLUE ABOUT 5 INCHES IN LENGTH, HAS BEEN MARKED BY PRIOR SHIFT AND HAS NOT EXTENDED OVERIGHT. GROINT INSERTION SITE IS SOFT TO TOUCH, NO HEMATOMA AND DISTAL'S BILATERALLY ARE 2+. WILL MONITOR AND INQUIRE ABOUT DISCHARGE PLANNING TODAY.
--- NOTE | 2020-05-12 11:58 | NUR ---
PT. UP IN BED. SAID HE DID NOT WANT TO SHOWER TODAY AND WOULD PREFER TO DO SUCH AT E INSTEAD LATER ON. DENIES CHEST PAIN, DENIES ANY SOB. STATED HIS RIDE HOME IS CLOSE BY ABOUT 10 MINUTES AND AVAILABLE.
[2020-05-12 13:58] VITALS: BP 131/75
--- NOTE | 2020-05-12 15:13 | NUR ---
PT. DISCHARGED AT THIS TIME. IV REMOVED. DENIES ANY PAIN. GROIN SITE IS C,D,I.
== END 2020-05-12 15:26 | disposition home or self-care (01) | DRG 246 ==
LOC: ER 16:29 → EROBS 17:31 → 2N 17:31
PROVIDERS: Emergency Medicine; Internal Medicine Cardiovascular Disease; ADMIT Internal Medicine; ATTEND Internal Medicine
PROC: 4A023N7 Measurement of Cardiac Sampling and Pressure, Left Heart, Percutaneous Approach (ICD-10-PCS; principal; 2020-05-11)
PROC: B2111ZZ Fluoroscopy of Multiple Coronary Arteries using Low Osmolar Contrast (ICD-10-PCS; principal; 2020-05-11)
PROC: B2181ZZ Fluoroscopy of Left Internal Mammary Bypass Graft using Low Osmolar Contrast (ICD-10-PCS; principal; 2020-05-11)
PROC: B240ZZ3 Ultrasonography of Single Coronary Artery, Intravascular (ICD-10-PCS; principal; 2020-05-11)
PROC: 027135Z Dilation of Coronary Artery, Two Arteries with Two Drug-eluting Intraluminal Devices, Percutaneous Approach (ICD-10-PCS; principal; 2020-05-11)
PROC: B21F1ZZ Fluoroscopy of Other Bypass Graft using Low Osmolar Contrast (ICD-10-PCS; principal; 2020-05-11)
DX: I25.110 Atherosclerotic heart disease of native coronary artery with unstable angina pectoris (principal); I50.33 Acute on chronic diastolic (congestive) heart failure; Z96.651 Presence of right artificial knee joint; E87.5 Hyperkalemia; E78.5 Hyperlipidemia, unspecified; E11.40 Type 2 diabetes mellitus with diabetic neuropathy, unspecified; E03.9 Hypothyroidism, unspecified; I11.0 Hypertensive heart disease with heart failure; N40.0 Benign prostatic hyperplasia without lower urinary tract symptoms; F32.9 Major depressive disorder, single episode, unspecified; E78.00 Pure hypercholesterolemia, unspecified; I25.5 Ischemic cardiomyopathy; Z95.1 Presence of aortocoronary bypass graft; Z95.5 Presence of coronary angioplasty implant and graft; Z79.82 Long term (current) use of aspirin; Z79.899 Other long term (current) drug therapy; Z87.891 Personal history of nicotine dependence
CPT/HCPCS: 10081

== ENCOUNTER → 2020-06-11 | Outpatient (CLI) | payer OTHER ==
[~2020-06-11] MED LIST changes: +BUPROPION XL300 MG PO
== END ==
LOC: SJCVC 13:44
PROVIDERS: ATTEND Internal Medicine Cardiovascular Disease
DX: I44.0 Atrioventricular block, first degree (principal); I45.10 Unspecified right bundle-branch block; I11.9 Hypertensive heart disease without heart failure; R94.31 Abnormal electrocardiogram [ECG] [EKG]; I25.810 Atherosclerosis of coronary artery bypass graft(s) without angina pectoris; I25.5 Ischemic cardiomyopathy; E11.9 Type 2 diabetes mellitus without complications; E78.00 Pure hypercholesterolemia, unspecified; E78.5 Hyperlipidemia, unspecified; I25.2 Old myocardial infarction; E66.9 Obesity, unspecified; Z79.4 Long term (current) use of insulin; Z95.1 Presence of aortocoronary bypass graft; Z79.82 Long term (current) use of aspirin; Z79.899 Other long term (current) drug therapy; Z82.49 Family history of ischemic heart disease and other diseases of the circulatory system; Z87.891 Personal history of nicotine dependence

== ENCOUNTER → 2020-07-22 | Outpatient (CLI) | payer OTHER | LOC: SJCVC 15:33 | PROVIDERS: ATTEND Internal Medicine Cardiovascular Disease | DX: R94.31 Abnormal electrocardiogram [ECG] [EKG] (principal); I45.10 Unspecified right bundle-branch block; I11.9 Hypertensive heart disease without heart failure; I25.10 Atherosclerotic heart disease of native coronary artery without angina pectoris; I10 Essential (primary) hypertension; E78.00 Pure hypercholesterolemia, unspecified; E11.9 Type 2 diabetes mellitus without complications; I25.5 Ischemic cardiomyopathy; G47.30 Sleep apnea, unspecified; R07.9 Chest pain, unspecified; Z79.4 Long term (current) use of insulin; Z95.1 Presence of aortocoronary bypass graft ==

== ENCOUNTER → 2020-09-22 | Outpatient (CLI) | payer OTHER | LOC: SJCVCIMAG 11:06 | PROVIDERS: ATTEND Internal Medicine Cardiovascular Disease | DX: I45.10 Unspecified right bundle-branch block (principal); I49.1 Atrial premature depolarization; I49.3 Ventricular premature depolarization; I25.10 Atherosclerotic heart disease of native coronary artery without angina pectoris; E11.9 Type 2 diabetes mellitus without complications; Z95.1 Presence of aortocoronary bypass graft; Z95.5 Presence of coronary angioplasty implant and graft; Z79.899 Other long term (current) drug therapy ==

== ENCOUNTER → 2021-01-28 | Outpatient (CLI) | payer OTHER ==
[~2021-01-28] VITALS: Ht 170.2 cm; Wt 110.2 kg
[~2021-01-28] MED LIST changes: +LEVOTHYROXINE137 MC1 PO; +METFORMIN HCL1000 M1 PO; +MOBIC7.5 MG PO; +VIAGRA50 MG PO
[2021-01-28 09:16] VITALS: BP 144/89
--- NOTE | 2021-01-28 09:38 | NUR ---
Pain Clinic Assessment: 1. History of Osteoarthritis: Left Lower Extremity Left Upper Extremity Right Lower Extremity Right Upper Extremity BACK History of Rheumatoid Arthritis: Not Applicable 2. Height: 5 ft. 7 in. 170.2 cm. Weight: 243.0 lb. oz. 110.224 kg. Patient's BMI: 38.1 3. Vital Signs: BP: 144/89 Pulse: 85 Resp: 14 Temp: 02 Sat: 95 ECG Mon: 4. Pain Intensity: 9 AM, WITH MEDS 6 5. Fall Risk: Dizziness: N Needs help standing or walking: N Fallen in the last 3 months: N Fall risk comments: 6. Patient on Blood Thinner: None 7. History of Hypertension: Y 8. Opioid Therapy greater than 6 weeks: N Opiate Contract Signed: 9. Risk Assessment Tool Provided: 1-LOW RISK 10. Functional Assessment Tool: 58/70 11. Recreational Drug Use: Never Drug Type: Tobacco Use: Never Smoker Tobacco Type: Amount or Packs/day: How Many Years: Alcohol Use: Yes Frequency: Monthly Quant: 3
== END ==
LOC: PAIN 06:41
PROVIDERS: ATTEND Anesthesiology Pain Medicine
DX: M47.816 Spondylosis without myelopathy or radiculopathy, lumbar region (principal); G89.29 Other chronic pain; E66.01 Morbid (severe) obesity due to excess calories; I25.10 Atherosclerotic heart disease of native coronary artery without angina pectoris; E11.9 Type 2 diabetes mellitus without complications; I10 Essential (primary) hypertension; N40.1 Benign prostatic hyperplasia with lower urinary tract symptoms; M48.00 Spinal stenosis, site unspecified; Z96.653 Presence of artificial knee joint, bilateral; Z79.899 Other long term (current) drug therapy

== ENCOUNTER → 2021-02-11 | Outpatient (CLI) | payer OTHER ==
[~2021-02-11] VITALS: Ht 170.2 cm; Wt 110.2 kg
[2021-02-11 10:42] VITALS: BP 155/96
--- NOTE | 2021-02-11 10:47 | NUR ---
Pain Clinic Assessment: 1. History of Osteoarthritis: Left Lower Extremity Left Upper Extremity Right Lower Extremity Right Upper Extremity BACK History of Rheumatoid Arthritis: Not Applicable 2. Height: 5 ft. 7 in. 170.2 cm. Weight: 243.0 lb. oz. 110.224 kg. Patient's BMI: 38.1 3. Vital Signs: BP: 155/96 Pulse: 81 Resp: 16 Temp: 02 Sat: 95 ECG Mon: 4. Pain Intensity: 6 5. Fall Risk: Dizziness: N Needs help standing or walking: N Fallen in the last 3 months: N Fall risk comments: 6. Patient on Blood Thinner: None 7. History of Hypertension: Y 8. Opioid Therapy greater than 6 weeks: N Opiate Contract Signed: 9. Risk Assessment Tool Provided: 1-LOW RISK 10. Functional Assessment Tool: 58/70 11. Recreational Drug Use: Never Drug Type: Tobacco Use: Never Smoker Tobacco Type: Amount or Packs/day: How Many Years: Alcohol Use: Yes Frequency: Monthly Quant: 3
== END | disposition home or self-care (01) ==
LOC: PAIN 06:41
PROVIDERS: ATTEND Anesthesiology Pain Medicine
DX: M47.815 Spondylosis without myelopathy or radiculopathy, thoracolumbar region (principal); M96.1 Postlaminectomy syndrome, not elsewhere classified; E11.9 Type 2 diabetes mellitus without complications; I25.10 Atherosclerotic heart disease of native coronary artery without angina pectoris; Z98.890 Other specified postprocedural states; Z79.899 Other long term (current) drug therapy

== ENCOUNTER → 2021-10-12 | Outpatient (CLI) | payer OTHER | LOC: SJCVC 10:34 → SJCVCIMAG 10:34 | PROVIDERS: ATTEND Internal Medicine Cardiovascular Disease | DX: R94.31 Abnormal electrocardiogram [ECG] [EKG] (principal); I65.23 Occlusion and stenosis of bilateral carotid arteries; I45.10 Unspecified right bundle-branch block; I25.810 Atherosclerosis of coronary artery bypass graft(s) without angina pectoris; I10 Essential (primary) hypertension; E78.00 Pure hypercholesterolemia, unspecified; E11.43 Type 2 diabetes mellitus with diabetic autonomic (poly)neuropathy; I25.5 Ischemic cardiomyopathy; G47.30 Sleep apnea, unspecified; Z95.1 Presence of aortocoronary bypass graft; M19.90 Unspecified osteoarthritis, unspecified site; E66.9 Obesity, unspecified; N40.0 Benign prostatic hyperplasia without lower urinary tract symptoms; Z79.82 Long term (current) use of aspirin; Z79.899 Other long term (current) drug therapy; Z87.891 Personal history of nicotine dependence; Z72.89 Other problems related to lifestyle; Z82.49 Family history of ischemic heart disease and other diseases of the circulatory system; Z88.8 Allergy status to other drugs, medicaments and biological substances ==

== ENCOUNTER → 2021-12-13 | Outpatient (CLI) | payer OTHER | LOC: ULTRA 08:31 | PROVIDERS: ATTEND Nurse Practitioner | DX: R19.02 Left upper quadrant abdominal swelling, mass and lump (principal) ==

== ENCOUNTER → 2021-12-27 | Outpatient (CLI) | payer OTHER ==
[~2021-12-27] VITALS: Ht 170.2 cm; Wt 96.6 kg
[~2021-12-27] MED LIST changes: +DULOXETINE HCL60 MG PO; +[UNRECOGNIZED DRUG - OTHER]
[2021-12-27 09:46] VITALS: BP 141/90
--- NOTE | 2021-12-27 10:10 | NUR ---
Pain Clinic Assessment: 1. History of Osteoarthritis: Left Lower Extremity Left Upper Extremity Right Lower Extremity Right Upper Extremity BACK History of Rheumatoid Arthritis: Not Applicable 2. Height: 5 ft. 7 in. 170.2 cm. Weight: 213.0 lb. oz. 96.616 kg. Patient's BMI: 33.4 3. Vital Signs: BP: 141/90 Pulse: 81 Resp: 20 Temp: 02 Sat: 98 ECG Mon: 4. Pain Intensity: 4-5 5. Fall Risk: Dizziness: N Needs help standing or walking: N Fallen in the last 3 months: N Fall risk comments: 6. Patient on Blood Thinner: None 7. History of Hypertension: Y 8. Opioid Therapy greater than 6 weeks: N Opiate Contract Signed: 9. Risk Assessment Tool Provided: 1-LOW RISK 10. Functional Assessment Tool: 58/70 11. Recreational Drug Use: Never Drug Type: Tobacco Use: Never Smoker Tobacco Type: Amount or Packs/day: How Many Years: Alcohol Use: Yes Frequency: Monthly Quant: ONE DRINK
== END | disposition home or self-care (01) ==
LOC: PAIN 09:25
PROVIDERS: ATTEND Anesthesiology Pain Medicine
DX: M47.816 Spondylosis without myelopathy or radiculopathy, lumbar region (principal); M47.22 Other spondylosis with radiculopathy, cervical region; M96.1 Postlaminectomy syndrome, not elsewhere classified; I10 Essential (primary) hypertension; M19.90 Unspecified osteoarthritis, unspecified site; I25.10 Atherosclerotic heart disease of native coronary artery without angina pectoris; Z98.890 Other specified postprocedural states; Z79.899 Other long term (current) drug therapy; Z95.1 Presence of aortocoronary bypass graft